=== PATIENT | female | born 1980 | race Caucasian/White ===

== ENCOUNTER 2017-04-22 14:25 | Emergency (ER) | payer OTHER ==
[2017-04-22 15:13] VITALS: BP 120/82
--- NOTE | 2017-04-22 15:44 | UC ---
UC General HPI - HPI Summary HPI Summary: pt is c/o pain with redness and swelling to her right cheek x 2 days. it is worsening. no fever. pt has IDDM, her BS is stable-not increasing with this. - History of Current Complaint Chief Complaint: TAMERAkin Stated Complaint: SKIN CONCERN Time Seen by Provider: 04/22/17 15:22 Hx Obtained From: Patient Hx Last Menstrual Period: 03/29/17 Onset/Duration: Gradual Onset Timing: Constant Pain Intensity: 8 Aggravating: nothing Alleviating: nothing Associated Signs & Symptoms: Negative: Fever - Allergy/Home Medications Allergies/Adverse Reactions: Allergies Allergy/AdvReac Type Severity Reaction Status Date / Time amoxicillin [From Augmentin] Allergy Swelling Verified 04/22/17 15:06 clavulanic acid Allergy Swelling Verified 04/22/17 15:06 [From Augmentin] Home Medications: Home Medications Insulin Glargine,Hum.rec.anlog [Basaglar Kwikpen U-100] 45 unit SC DAILY [History Confirmed 04/22/17] PMH/Surg Hx/FS Hx/Imm Hx Endocrine History: Diabetes - Surgical History Surgical History: Yes Surgery Procedure, Year, and Place: tonsilectomy - Family History Known Family History: Positive: Hypertension, Diabetes - Social History Alcohol Use: Occasionally Substance Use Type: None Smoking Status (MU): Light Every Day Tobacco Smoker Type: Cigarettes Amount Used/How Often: 1/2 ppd Length of Time of Smoking/Using Tobacco: 20 yrs Have You Smoked in the Last Year: Yes - Immunization History Most Recent Tetanus Shot: unknown Vaccination Up to Date: Yes Review of Systems Constitutional: Negative Skin: Rash - left cheek Eyes: Negative ENT: Negative Respiratory: Negative Cardiovascular: Negative Gastrointestinal: Negative Genitourinary: Negative Motor: Negative Neurovascular: Negative Musculoskeletal: Negative Neurological: Negative Psychological: Negative All Other Systems Reviewed And Are Negative: Yes Physical Exam Triage Information Reviewed: Yes Appearance: Well-Appearing Vital Signs: Initial Vital Signs Temp 98.5 F 04/22/17 15:07 Pulse 92 04/22/17 15:07 Resp 16 04/22/17 15:07 BP 120/82 04/22/17 15:07 Pulse Ox 100 04/22/17 15:07 Vital Signs Reviewed: Yes Eyes: Positive: Conjunctiva Clear ENT: Positive: Normal ENT inspection Neck: Positive: Supple, Nontender, No Lymphadenopathy Respiratory: Positive: Lungs clear, Normal breath sounds Cardiovascular: Positive: No Murmur Abdomen Description: Positive: Nontender, No Organomegaly, Soft Bowel Sounds: Positive: Present Musculoskeletal: Positive: ROM Intact Neurological: Positive: Alert Psychological: Positive: Age Appropriate Behavior Skin Exam: Normal Skin: Positive: Other - 1cm area of erythema, warmth and tender over right cheek. no fluctuance or pointing. Course/Dx - Course Course Of Treatment: exam c/w skin infection. concern for early abscess but area is not fluctuant-nothing to aspirate. given location and potential proximity to facial nerve, will refer to ENT. Pt requesting we refer her to Dr Acosta for the f/u. will tx warm compress and doxycycline as well. - Differential Dx - Multi-Symptom Provider Diagnoses: Skin infection left cheek. Discharge - Discharge Plan Condition: Stable Disposition: HOME Prescriptions: DOXYcycline CAP(*) [DOXYcycline 100MG CAP(*)] 100 mg PO BID #20 cap Patient Education Materials: Abscess (ED) Referrals: Cheyanne Fry MD [Primary Care Provider] - If Needed Perry Acosta MD [Medical Doctor] - 2 Days Additional Instructions: WARM COMPRESS LEFT CHEEK THREE TIMES DAILY
== END 2017-04-22 15:58 | disposition home or self-care (01) ==
LOC: UCCORT 14:25
DX: L08.9 Local infection of the skin and subcutaneous tissue, unspecified (principal); E11.9 Type 2 diabetes mellitus without complications; Z79.4 Long term (current) use of insulin; Z88.0 Allergy status to penicillin; Z88.8 Allergy status to other drugs, medicaments and biological substances; F17.210 Nicotine dependence, cigarettes, uncomplicated
CPT/HCPCS: 99212; G0463